=== PATIENT | female | born 1950 | race Hispanic/Latino ===

== ENCOUNTER 2017-09-26 07:01 | Day surgery (SDC) | payer MEDICARE ==
[2017-04-24 08:38] VITALS: BMI 44.9
[2017-09-26 07:53] LABS: BASO # 0.1 K/uL (0.0-0.2); BASO % 1.1 % (0.0-2.0); EOS # 0.2 K/uL (0.0-0.7); EOS % 3.6 % (0.0-4.0); HEMOGLOBIN 12.3 g/dL (11.0-16.0); LYMPH # 1.7 K/uL (1.0-4.3); LYMPH % 26.9 % (20.0-40.0); MEAN CELL VOLUME 89.6 fL (81.0-99.0); MEAN CORPUSCULAR HEMOGLOBIN 30.4 pg (27.0-31.0); MEAN CORPUSCULAR HGB CONC 33.9 g/dL (33.0-37.0); MONO # 0.4 K/uL (0.0-0.8); MONO % 5.8 % (0.0-10.0); NEUT % 62.6 % (50.0-75.0); RBC 4.05 Mil/uL (3.80-5.20); RED CELL DISTRIBUTION WIDTH 14.7 % (11.5-14.5); WHITE BLOOD COUNT 6.4 K/uL (4.8-10.8)
[2017-09-26 08:02] LABS: PROTHROMBIN TIME 11.2 SECONDS (9.7-12.2)
[2017-09-26 08:07] LABS: ALB/GLOB RATIO 1.2 (1.0-2.1); ALBUMIN 4.2 g/dL (3.5-5.0); ALT/SGPT 23 U/L (9-52); AST/SGOT 16 U/L (14-36); BLOOD UREA NITROGEN 16 mg/dL (7-17); CALCIUM 9.3 mg/dl (8.6-10.4); GFR AFRICAN-AMERICAN > 60; GFR NON-AFRICAN AMERICAN > 60; HDL CHOLESTEROL 48 mg/dL (30-70)
[2017-09-26 08:17] LABS: LDL CHOLESTEROL 75 mg/dL (0-129)
[2017-09-26 08:29] LABS: T4 11.2 ug/dL (5.5-11.0)
[2017-09-26 08:41] LABS: T3 1.58 nmol/L (1.49-2.60)
[2017-09-26 08:49] VITALS: TEMP 97.3
--- NOTE | 2017-09-26 09:55 | CP.SDSHP ---
Same Day Surgery H & P - History Proposed Procedure: COLONSCOPY Pre-Op Diagnosis: SEE NOTES - Previous Medical/Surgical History Cardiac: Hypertension Endocrine/Metabolic: Thyroid Disease, Diabetes, Other Neuro: Backaches - Allergies Allergies: Allergies No Known Allergies Allergy (Verified 04/24/17 08:38) - Physical Exam General Appearance: N Vital Signs: Vital Signs 09/26/17 08:05 Temperature 97.3 F L Pulse Rate 75 Respiratory 19 Rate Blood Pressure 117/82 O2 Sat by Pulse 97 Oximetry Mental Status: Alert & Oriented x3 Neuro: WNL Heart: Other GI: WNL - {Optional Preform as Required} Breast: WNL Abdomen: Other Rectal: Other Integument: WNL : WNL Ortho: Other ENT: WNL - Impression Pt. Evaluated Today:Candidate for Anesthesia & Procedure: Yes - Date & Time Time: 09:55 Short Stay Discharge - Short Stay Discharge Admitting Diagnosis/Reason for Visit: HEMORRHAGE OF ANUS AND RECTUM Disposition: HOME/ ROUTINE
[2017-09-26] MEDS ORDERED: Propofol 10 mg/ml Inj (20 ML) ONE (09:57)
[2017-09-26] MEDS ORDERED: Belladonna-Phenobarbital PO ONE (10:35)
[2017-09-26 12:13] VITALS: BP 117/59; PULSE 71; RESP 18; O2SAT 98
== END 2017-09-26 11:40 | disposition home or self-care (01) ==
LOC: C.ENDO 07:01
PROVIDERS: ATTEND Specialist
DX: K58.9 Irritable bowel syndrome, unspecified (principal); K64.8 Other hemorrhoids; K64.4 Residual hemorrhoidal skin tags; E11.9 Type 2 diabetes mellitus without complications; I10 Essential (primary) hypertension
CPT/HCPCS: 36415; 45380; 80053; 80061; 82378; 82948; 84436; 84443; 84480; 85025; 85610; 85730; 86304; 88305; J2704

== ENCOUNTER 2018-02-26 09:56 | Day surgery (SDC) | payer OTHER ==
[2017-04-24 08:38] VITALS: BMI 44.9
--- NOTE | 2018-02-26 11:27 | CP.SDSHP ---
Same Day Surgery H & P - History Proposed Procedure: colonscopy Pre-Op Diagnosis: SEE NOTES - Previous Medical/Surgical History Cardiac: Hypertension Endocrine/Metabolic: Thyroid Disease, Diabetes, Other Neuro: Backaches - Allergies Allergies: Allergies No Known Allergies Allergy (Verified 04/24/17 08:38) - Physical Exam General Appearance: N Vital Signs: Vital Signs 02/26/18 10:30 Temperature 98 F Pulse Rate 79 Respiratory 19 Rate Blood Pressure 143/83 O2 Sat by Pulse 98 Oximetry Mental Status: Alert & Oriented x3 Neuro: WNL Heart: Other Lungs: WNL GI: Other - {Optional Preform as Required} Breast: WNL Abdomen: Other Rectal: Other Integument: WNL : WNL Ortho: Other ENT: WNL - Impression Pt. Evaluated Today:Candidate for Anesthesia & Procedure: Yes - Date & Time Time: 11:26 Short Stay Discharge - Short Stay Discharge Admitting Diagnosis/Reason for Visit: CHANGE OF BOWEL HABITS Disposition: HOME/ ROUTINE
[2018-02-26] MEDS ORDERED: Propofol 10 mg/ml Inj (20 ML) ONE (11:38)
[2018-02-26] MEDS ORDERED: Belladonna-Phenobarbital PO ONE (12:15)
[2018-02-26 12:21] VITALS: TEMP 97.4
[2018-02-26 14:23] VITALS: PULSE 67; O2SAT 100
[2018-02-26 14:28] VITALS: BP 127/70; RESP 11
== END 2018-02-26 13:30 | disposition home or self-care (01) ==
LOC: C.ENDO 09:56
PROVIDERS: ATTEND Specialist
DX: K58.9 Irritable bowel syndrome, unspecified (principal); R19.4 Change in bowel habit; K64.8 Other hemorrhoids
CPT/HCPCS: 45380; 82948; 88305; J2704

== ENCOUNTER 2018-07-17 08:37 | Day surgery (SDC) | payer OTHER ==
[2018-07-11 09:29] VITALS: BMI 38.9
[~2018-07-17 08:37] MED LIST: Acetaminophen-Codeine 300/30 mg Tab PO PRN; Dextrose 5%/0.45% NS 1,000 ML IV SCH; Lidocaine/Epinephrine 1% 1:100000 10 ML IJ ONE; ceFAZolin 1 gm FROZEN Premix 1 GM/50 ML ML IVPB ONE; ceFAZolin IV 1 gm in Dextrose 1 GM/50 ML BAG IVPB ONE
[2018-07-17] MEDS ORDERED: EPINEPHrine 1:1000 Nasal Sol(30mL) ONE (09:46)
[2018-07-17] MEDS ORDERED: Propofol 10 mg/ml Inj (20 ML) ONE (10:36)
[2018-07-17] MEDS ORDERED: Midazolam 2 MG/2 ML VIAL ONE (10:37)
[2018-07-17] MEDS ORDERED: Neostigmine Methylsulfate 3mg/3ml Syringe IV ONE (11:46)
[2018-07-17] MEDS ORDERED: Rocuronium 10 mg/ml (5 ml) ONE (11:47)
[2018-07-17] MEDS ORDERED: HYDROmorphone 0.5 mg/0.5 ml ISec IVP PRN (12:07)
[2018-07-17 13:40] VITALS: PULSE 100
[2018-07-17 14:17] VITALS: RESP 18
[2018-07-17 18:15] VITALS: BP 155/77; TEMP 98; O2SAT 96
--- NOTE | 2018-07-17 20:44 | OP ---
PROCEDURE DATE: 07/17/2018 PREOPERATIVE DIAGNOSES: Deviated septum, large turbinates. POSTOPERATIVE DIAGNOSES: Deviated septum, large turbinates. PROCEDURE: Septoplasty, endoscopic bilateral inferior turbinate reduction. FINDINGS: Deviated septum, large turbinates. DESCRIPTION OF PROCEDURE: The patient was brought into the room, placed in supine position. Anesthesia was initiated through an ET tube. The patient was draped in usual manner. Adrenaline-soaked pledgets were inserted into the nasal cavity. It remained there for 5 minutes and removed. The septum was injected with lidocaine with epinephrine on both sides. A Kennedy incision was made on the left and a mucoperichondrial flap was raised. A vertical incision was made in the cartilage leaving a 1.5 cm anterior and superior strut, and a mucoperichondrial flap was raised on the other side. Deviated portion of the cartilage and bone were removed using forceps and chisel. A Quilting suture was used to suture the two flaps together and close the Kennedy incision. The 0 degree scope was inserted into the nasal cavity. The inferior turbinates were noted to be enlarged and reduced in size, first on the left, then on the right, going from inferior to superior and anterior to posterior directions using scissors. Bleeding was controlled on both sides using suction cautery. Splints were placed. The patient was taken off anesthesia and taken to recovery room in a stable manner. Héctor Elizondo MD
== END 2018-07-17 16:48 | disposition home or self-care (01) ==
LOC: C.SDS 08:37
PROVIDERS: ATTEND Otolaryngology
DX: J34.2 Deviated nasal septum (principal); J34.3 Hypertrophy of nasal turbinates
CPT/HCPCS: 30140; 30520; 82948; 88304; J0690; J1100; J1170; J2001; J2250; J2405; J2704; J2710; J3010; J7042

== ENCOUNTER 2018-12-21 08:42 | Outpatient (CLI) | payer OTHER | END 2018-12-21 09:47 | disposition still patient (30) | LOC: C.PAT 08:42 | DX: H25.12 Age-related nuclear cataract, left eye (principal) ==

== ENCOUNTER 2018-12-21 09:48 | Emergency (ER) | payer OTHER ==
[2018-12-21 09:52] VITALS: BMI 35.8
[2018-12-21 10:04] VITALS: BP 138/85; PULSE 91; RESP 18; TEMP 98.1; O2SAT 97
[2018-12-21] MEDS ORDERED: Lidocaine 5% Patch TD STA (10:24)
--- NOTE | 2018-12-21 10:30 | C.PDOC ---
History Of Present Illness 68 year old female presents to the ED complaining of lower back pain ongoing for 2 weeks. Denies any trauma or falls. Reports she was seen by PMD for same complaint and given medications for muscle spasm but she cannot recall medication name. Notes medications are not helping with pain relief. Denies any extremity weakness or numbness, abdominal pain, or urinary symptoms. Time Seen by Provider: 12/21/18 10:18 Chief Complaint (Nursing): Back Pain History Per: Patient History/Exam Limitations: no limitations Onset/Duration Of Symptoms: Days Current Symptoms Are (Timing): Still Present Quality Of Discomfort: "Pain" Past Medical History Reviewed: Historical Data, Nursing Documentation, Vital Signs Vital Signs: Last Vital Signs Temp 98.1 F 12/21/18 09:52 Pulse 91 H 12/21/18 09:52 Resp 18 12/21/18 09:52 BP 138/85 12/21/18 09:52 Pulse Ox 97 12/21/18 09:52 - Medical History PMH: Arthritis, Colonic Polyps, Fractures (ankle right), Gastritis, Gall Bladder Disease, HTN, Hypercholesterolemia, Hypothyroidism, Peripheral Edema, Pneumonia (6 years ago ) Denies: Chronic Kidney Disease Surgical History: Endoscopy, Tonsillectomy Family History: States: No Known Family Hx - Social History Hx Alcohol Use: No Hx Substance Use: No - Immunization History Hx Tetanus Toxoid Vaccination: No Hx Influenza Vaccination: Yes Hx Pneumococcal Vaccination: Yes Review Of Systems Gastrointestinal: Negative for: Abdominal Pain Genitourinary: Negative for: Dysuria, Frequency, Hematuria, Vaginal Discharge, Vaginal Bleeding Musculoskeletal: Positive for: Back Pain Neurological: Negative for: Weakness, Numbness Physical Exam - Physical Exam Appears: Non-toxic, No Acute Distress Skin: Warm, Dry, No Rash Head: Normacephalic Eye(s): bilateral: Normal Inspection Oral Mucosa: Moist Chest: Symmetrical Cardiovascular: Rhythm Regular Respiratory: Normal Breath Sounds, No Rales, No Rhonchi, No Wheezing Gastrointestinal/Abdominal: Soft, No Tenderness Back: No CVA Tenderness, No Decreased ROM, No Paraspinal Tenderness, Other (Paralumbar tenderness ) Extremity: Bilateral: Atraumatic, Normal Color And Temperature, Normal ROM Neurological/Psych: Oriented x3, Normal Speech Gait: Steady ED Course And Treatment O2 Sat by Pulse Oximetry: 97 (RA) Pulse Ox Interpretation: Normal Medical Decision Making Medical Decision Making: Plan - Tylenol 650mg PO - Motrin 600mg PO - Lidoderm 1 TD - UA On reevaluation, patient is resting comfortable, is no longer having back pain, no fever, no body tenderness, no numbness, no weakness, or abdominal pain. Patient was advised to follow up with PMD in 1-2 days. Disposition Counseled Patient/Family Regarding: Diagnosis, Need For Followup, Rx Given - Disposition Disposition: HOME/ ROUTINE Disposition Time: 11:17 Condition: STABLE Additional Instructions: Apply heat to area for 15-20 minutes at a time 2-3 times per day Take Motrin for pain every 6-8 hours as needed, with food to not upset stomach Take Flexeril for muscle pain and spasm every 6-8 hours as needed, caution can cause drowsiness Follow up with your primary medical doctor or clinic in 2-5 days for further evaluation Return to the emergency department at any time if symptoms persist or worsen. Prescriptions: Acetaminophen [Acetaminophen ER] 650 mg PO Q8 #30 tablet.er Cyclobenzaprine [Cyclobenzaprine HCl] 10 mg PO TID #30 tab Ibuprofen [Motrin] 600 mg PO Q8 #30 tab Instructions: Low Back Pain (DC) Forms: [employer] (Italian) - POA Present On Arrival: None - Clinical Impression Clinical Impression: Low back strain - PA / PROVINCE ARCHIVIST / Resident Statement MD/DO has reviewed & agrees with the documentation as recorded. - Scribe Statement The provider has reviewed the documentation as recorded by the Scribe Eva Guevara All medical record entries made by the Scribe were at my direction and personally dictated by me. I have reviewed the chart and agree that the record accurately reflects my personal performance of the history, physical exam, medical decision making, and the department course for this patient. I have also personally directed, reviewed, and agree with the discharge instructions and disposition.
[2018-12-21] MEDS ORDERED: Lidocaine 5% Patch TD ONE (10:33)
[2018-12-21 10:55] LABS: SQUAMOUS EPITHIAL 1 /hpf (0-5); URINE BILIRUBIN NEGATIVE (NEGATIVE); URINE BLOOD NEGATIVE (NEGATIVE); URINE CLARITY Clear (Clear); URINE COLOR Yellow (YELLOW); URINE GLUCOSE (UA) 3+ mg/dL (Normal); URINE LEUKOCYTE ESTERASE NEG Leu/uL (Negative); URINE PROTEIN NEGATIVE (NEGATIVE); URINE UROBILINOGEN NORMAL mg/dL (0.2-1.0)
--- NOTE | 2018-12-21 12:00 | RAD ---
Date of service: Physical or 12/21/2018 PROCEDURE: Radiographs of the Lumbar Spine. HISTORY: back pain COMPARISON: No prior. TECHNIQUE: 5 views obtained. FINDINGS: BONES: Scoliosis, secondary degenerative change at multiple levels. DISC SPACES: Unremarkable. OTHER FINDINGS: None. IMPRESSION: Levoscoliosis, secondary degenerative change.
== END 2018-12-21 11:24 | disposition home or self-care (01) ==
LOC: C.ER 09:48
DX: S39.012A Strain of muscle, fascia and tendon of lower back, initial encounter (principal); X58.XXXA Exposure to other specified factors, initial encounter

== ENCOUNTER 2018-12-26 05:51 | Day surgery (SDC) | payer OTHER ==
[2018-12-26] MEDS ORDERED: Cyclopentolate 1% Opth (2 ml) OS SCH (06:00)
[2018-12-26] MEDS ORDERED: Lactated Ringer's 500 ML IV ONE (06:00)
[2018-12-26] MEDS ORDERED: Ketorolac Tromethamine 0.5% Opth Soln (3 ml) OS SCH (06:00)
[2018-12-26] MEDS ORDERED: Phenylephrine 2.5% Opht Soln OS SCH (06:00)
[2018-12-26] MEDS ORDERED: Ciprofloxacin 0.3% OPTH SOLN OS SCH (06:00)
[2018-12-26] MEDS ORDERED: Tropicamide 1% Opht SOLUTION OS SCH (06:00)
[2018-12-26] MEDS ORDERED: Lactated Ringer's 1,000 ML IV ONE (06:45)
[2018-12-26] MEDS ORDERED: Povidone Iodine Ophthalmic 5% Soln ONE (07:36)
[2018-12-26] MEDS ORDERED: Tobramycin/Dexamethasone OPHT OINT ONE (07:37)
[2018-12-26] MEDS ORDERED: Carbachol 0.01% IO ONE (07:37)
[2018-12-26] MEDS ORDERED: Hyaluronidase Human, Recombi 150 U/ML VIAL ONE (07:38)
[2018-12-26] MEDS ORDERED: Chondroitin/Hyaluronate Opth Syringe KIT (0.55 ml-0.5 ml) IO ONE (07:38)
[2018-12-26] MEDS ORDERED: Midazolam 2 MG/2 ML VIAL ONE (07:59)
[2018-12-26 09:40] VITALS: BP 139/75; PULSE 78; RESP 19; TEMP 97.9; O2SAT 97
--- NOTE | 2018-12-26 18:49 | OP ---
PROCEDURE DATE: 12/26/2018 PREOPERATIVE DIAGNOSIS: Mature cataract, left eye. POSTOPERATIVE DIAGNOSIS: Mature cataract, left eye. PROCEDURE: Phacoemulsification, left eye, insertion of posterior chamber lens implant. SURGEON: Reyes Matt MD ANESTHESIA TYPE: Local IV sedation. PROCEDURE: The patient was brought into the operating room, placed in supine position, prepped and draped in the usual fashion for ophthalmic surgery. Lid speculum was inserted, lids and exposing globe. A side-port incision was made superiorly and inferiorly with a disposable sharp blade. Anterior chamber was filled with Viscoat. A near clear corneal incision was made temporally with a 2.75-mm keratome. Capsulorrhexis was then performed with Utrata forceps. Hydrodissection carried out with balanced salt solution. Nucleus was phacoemulsified. Remaining cortical fragments were removed with a split irrigation and aspiration system. The capsular sac was filled with Provisc. A posterior chamber lens was then injected into the capsular sac and rotated into horizontal position. Provisc was aspirated out of the anterior chamber. The pupil was constricted with Miochol. The wound was found to be watertight. Topical Betadine, Timoptic, and TobraDex ointment and pressure patch were applied. The patient tolerated the procedure well. Reyes Matt MD
== END 2018-12-26 09:58 | disposition home or self-care (01) ==
LOC: C.SDS 05:51
PROVIDERS: ATTEND Ophthalmology
DX: H25.12 Age-related nuclear cataract, left eye (principal)
CPT/HCPCS: 66984; 82948; J2250; J3010; J3470; J7120; V2632